=== PATIENT | female | born 1930 | race Caucasian/White ===

== ENCOUNTER → 2016-09-15 | Outpatient (CLI) | payer OTHER ==
[~2016-09-15] MED LIST: ASPIRIN81 M2 PO; DARVOCET-N 1001 TAB PO; DEPAKOTE250 MG PO; DONEPEZIL HCL10 MG PO/SL; FLONASE 0.05% N16 G1; FOSAMAX PO; GUAIFENESIN200 MG PO; HCTZ PO; LISINOPRIL5 MG PO; NAMENDA XR28 MG PO; NO MEDICATIONS; PRAVACHOL PO; PRAVASTATIN SOD40 MG PO; ZESTORETIC 20-1 EAC1 PO; ZESTORETIC 20/11 TAB PO; ZOLOFT50 MG PO; [UNRECOGNIZED DRUG - OTHER] PO
[2016-09-15 19:05] LABS: URINE APPEARANCE CLEAR; URINE BILIRUBIN NEG (NEG); URINE BLOOD NEG (NEG); URINE COLOR YELLOW; URINE GLUCOSE NEG (NEG); URINE KETONE NEG (NEG); URINE LEUKOCYTE ESTERASE 1+ (NEG); URINE NITRATE NEG (NEG); URINE PROTEIN NEG (NEG); URINE SPECIFIC GRAVITY 1.022 (1.003-1.035)
[2016-09-15 19:07] LABS: U HYALINE CASTS AUWI 0-2 /[LPF]; URBCS1 AUWI 0-2 /[HPF] (0-2); URINE BACTERIA AUWI NEG (NEGATIVE); URINE SQUAMOUS EPITHELIAL CELL NONE SEEN /[HPF]
== END | disposition home or self-care (01) ==
LOC: CLAB 18:36
PROVIDERS: Psychiatry & Neurology Psychiatry
DX: Z51.81 Encounter for therapeutic drug level monitoring (principal); Z79.899 Other long term (current) drug therapy
CPT/HCPCS: 36415; 80164; 81003